=== PATIENT | male | born 1950 | race Caucasian/White ===

== ENCOUNTER 2020-02-06 16:09 | Inpatient (IN) ==
[2020-02-06] MEDS ORDERED: Furosemide 40 mg/4 ml IV VIAL IV SLOW PU ONE (16:41)
[2020-02-06 17:04] LABS: Hematocrit 44 % (42-52); Hemoglobin 14.8 g/dL (14.0-18.0); Mean Corpuscular HGB Conc 34 g/dL (31-36); Mean Corpuscular Hemoglobin 32 pg (27-31); Mean Corpuscular Volume 95 fL (80-94); Mean Platelet Volume 10.7 fL (7.4-10.4); Platelet Count 289 10^3/uL (150-450); Red Blood Count 4.62 10^6 /uL (4.18-5.48); Red Cell Distribution Width 17 % (10-15)
[2020-02-06 17:26] LABS: Troponin I 0.07 ng/mL (<0.03)
[2020-02-06 17:32] LABS: ABS Basophils 0.1 10^3/ul (0-0.2); ABS Eosinophils 0.1 10^3/ul (0-0.6); Eosinophil % 1.1 %; Lymphocyte % 10.9 %; Nucleated Red Blood Cells % 0.1
[2020-02-06 17:41] LABS: ALT 31 U/L (7-52); AST 23 U/L (13-39); Albumin 3.8 g/dL (3.2-5.2); Albumin/Globulin Ratio 1.5 (1-3); Alkaline Phosphatase 75 U/L (34-104); Anion Gap 9 mmol/L (2-11); BUN/Creatinine Ratio 18.2 (8-20); Blood Urea Nitrogen 28 mg/dL (6-24); C Reactive Protein 22.11 mg/L (<8.01); CO2 Carbon Dioxide 20 mmol/L (22-32); Calcium 9.3 mg/dL (8.6-10.3); Chloride 110 mmol/L (101-111); EGFR African American 54.5 (>60); Globulin 2.6 g/dL (2-4); Glucose 114 mg/dL (70-100); Potassium 3.8 mmol/L (3.5-5.0); Sodium 139 mmol/L (135-145); Total Protein 6.4 g/dL (6.4-8.9)
[2020-02-06] MEDS ORDERED: Metoprolol Tartrate 5 mg VIAL 5 ml VIAL (1 mg/ml) IV PRN (19:46)
[2020-02-06] MEDS ORDERED: A lbuterol Hfa (PREPAK) 1 MDI - ED TAKE HOME DISPENSING ONLY INHH PRN (19:50)
[2020-02-06] MEDS ORDERED: Potassium Chlor 20 meq TAB.ER PO ONE (19:55)
[2020-02-06] MEDS ORDERED: Metoprolol Tartrate 5 mg VIAL 5 ml VIAL (1 mg/ml) IV ONE (20:15)
[2020-02-06 20:20] LABS: Troponin I 0.07 ng/mL (<0.03)
[2020-02-06 21:04] LABS: Digoxin 1.6 ng/ml (0.8-2.0)
[2020-02-06 21:06] LABS: Magnesium 1.9 mg/dL (1.9-2.7)
[2020-02-06] MEDS ORDERED: Magnesium Sulfate IV 1GM/100ML 1 GM/100 ML BAG IV ONE (21:20)
[2020-02-06] MEDS: IMIPRAMINE 25 MG PO SCH (21:36)
[2020-02-06 21:51] LABS: TSH (Thyroid Stimulating Horm) 2.95 mcIU/mL (0.34-5.60)
[2020-02-06] MEDS ORDERED: Albuterol HFA INHALER 8 gm MDI INH PRN (22:00)
[2020-02-06] MEDS ORDERED: Diltiazem IV push/loading dose 5 MG/ML 5 ML vial (25 mg) IV SLOW PU ONE (22:14)
[2020-02-06] MEDS: Mometasone/Formoter 200/5 MDI INH SCH (23:11)
[2020-02-07 06:42] LABS: BUN/Creatinine Ratio 17.6 (8-20); Calcium 8.5 mg/dL (8.6-10.3); EGFR African American 59.8 (>60); EGFR Non-African American 49.4 (>60); Magnesium 1.9 mg/dL (1.9-2.7); Potassium 3.6 mmol/L (3.5-5.0)
[2020-02-07] MEDS: Mometasone/Formoter 200/5 MDI INH SCH ×2 (08:19→20:25)
[2020-02-07] MEDS ORDERED: Metoprolol Tartrate 5 mg VIAL 5 ml VIAL (1 mg/ml) IV ONE (08:35)
[2020-02-07] MEDS ORDERED: Digoxin IV 0.5 MG/2 ML AMP (0.25 MG/ML) IV SLOW PU ONE (08:35)
[2020-02-07] MEDS ORDERED: Potassium Chlor 20 meq TAB.ER PO ONE (09:21)
[2020-02-07] MEDS: Aspirin EC 81 mg TAB.EC (enteric coated) PO SCH (09:38)
[2020-02-07] MEDS ORDERED: Midazolam 5 mg/5 ml VIAL 1 mg/ml 5 ml VIAL (5 mg) ONE (10:10)
[2020-02-07] MEDS ORDERED: fentaNYL 100 mcg/2 ml 50 MCG/ML VIAL ONE (10:10)
[2020-02-07] MEDS ORDERED: Naloxone 0.4 mg VIAL 0.4 mg/ml 1 ml VIAL ONE (10:11)
[2020-02-07] MEDS ORDERED: Flumazenil 0.5 mg/5 ml 0.1 MG/ML 5 ml VIAL ONE (10:11)
[2020-02-07] MEDS ORDERED: KCL 10 MEQ/50 ML IVPREMIX 10 MEQ/50 ML BAG IV ONE (12:01)
[2020-02-07] MEDS: Amiodarone 150 mg IVPREMIX 150 MG/100 ML BAG IV ONE ×2 (12:07→12:20)
[2020-02-07] MEDS ORDERED: Amiodarone 150 mg IVPREMIX 150 MG/100 ML BAG IV ONE (12:14)
[2020-02-07] MEDS ORDERED: Potassium Chloride LIQUID 20 MEQ/15 ML LIQUID PO ONE (13:02)
[2020-02-07] MEDS: Amiodarone 400 mg TAB PO SCH (18:16)
[2020-02-07] MEDS: IMIPRAMINE 25 MG PO SCH (20:58)
[2020-02-08] MEDS ORDERED: Albuterol 2.5mg/3 ml (0.083%) NEB.SOLN INH ONE ×2 (07:53→13:01)
[2020-02-08] MEDS: Mometasone/Formoter 200/5 MDI INH SCH ×2 (08:06→19:51)
[2020-02-08 08:09] LABS: ABS Basophils 0.1 10^3/ul (0-0.2); ABS Eosinophils 0.1 10^3/ul (0-0.6); ABS Lymphocytes 0.8 10^3/ul (1.0-4.8); ABS Monocytes 0.9 10^3/ul (0-0.8); Eosinophil % 1.3 %; Hematocrit 40 % (42-52); Hemoglobin 13.5 g/dL (14.0-18.0); Lymphocyte % 10.1 %; Mean Corpuscular HGB Conc 34 g/dL (31-36); Mean Corpuscular Hemoglobin 32 pg (27-31); Mean Corpuscular Volume 95 fL (80-94); Mean Platelet Volume 9.8 fL (7.4-10.4); Nucleated Red Blood Cells % 0.1; Platelet Count 288 10^3/uL (150-450); Red Blood Count 4.25 10^6 /uL (4.18-5.48); Red Cell Distribution Width 17 % (10-15); White Blood Count 8.3 10^3/uL (3.5-10.8)
[2020-02-08] MEDS: Aspirin EC 81 mg TAB.EC (enteric coated) PO SCH (08:21)
[2020-02-08] MEDS: Amiodarone 400 mg TAB PO SCH (08:21)
[2020-02-08 08:30] LABS: Anion Gap 7 mmol/L (2-11); Blood Urea Nitrogen 25 mg/dL (6-24); CO2 Carbon Dioxide 24 mmol/L (22-32); Calcium 8.4 mg/dL (8.6-10.3); Chloride 105 mmol/L (101-111); EGFR African American 57.5 (>60); EGFR Non-African American 47.5 (>60); Glucose 95 mg/dL (70-100); Potassium 3.7 mmol/L (3.5-5.0); Sodium 136 mmol/L (135-145)
[2020-02-08] MEDS ORDERED: Potassium Chloride LIQUID 20 MEQ/15 ML LIQUID PO ONE (08:56)
[2020-02-08 09:36] LABS: Troponin I 0.23 ng/mL (<0.03)
[2020-02-08] MEDS: Enoxaparin 80 MG/0.8 ML SYR(*) SUBCUT SCH ×2 (10:13→20:51)
[2020-02-08] MEDS ORDERED: Furosemide 20 mg/2 ml IV VIAL IV ONE (10:17)
[2020-02-08 10:35] LABS: Magnesium 1.7 mg/dL (1.9-2.7)
[2020-02-08 10:43] LABS: Digoxin 1.6 ng/ml (0.8-2.0)
[2020-02-08] MEDS: IMIPRAMINE 25 MG PO SCH (20:49)
[2020-02-08 22:18] LABS: Troponin I 0.42 ng/mL (<0.03)
[2020-02-09 06:18] LABS: Troponin I 0.33 ng/mL (<0.03)
[2020-02-09] MEDS: Mometasone/Formoter 200/5 MDI INH SCH ×2 (07:21→19:20)
[2020-02-09] MEDS: Aspirin EC 81 mg TAB.EC (enteric coated) PO SCH (09:08)
[2020-02-09] MEDS: Amiodarone 400 mg TAB PO SCH (09:09)
[2020-02-09] MEDS: Enoxaparin 80 MG/0.8 ML SYR(*) SUBCUT SCH ×2 (09:12→22:29)
[2020-02-09] MEDS ORDERED: Potassium Chloride LIQUID 20 MEQ/15 ML LIQUID PO ONE ×2 (12:18→18:19)
[2020-02-09] MEDS ORDERED: Magnesium Sulfate 2 gm BAG 2 GM/50 ML BAG IVPB ONE (12:19)
[2020-02-09] MEDS: IMIPRAMINE 25 MG PO SCH (22:27)
[2020-02-10] MEDS: Mometasone/Formoter 200/5 MDI INH SCH ×2 (07:39→19:26)
[2020-02-10] MEDS: Enoxaparin 80 MG/0.8 ML SYR(*) SUBCUT SCH ×2 (08:01→21:29)
[2020-02-10] MEDS: Aspirin EC 81 mg TAB.EC (enteric coated) PO SCH (08:01)
[2020-02-10 08:37] LABS: INR 1.32 (0.82-1.09)
[2020-02-10 08:50] LABS: Anion Gap 7 mmol/L (2-11); BUN/Creatinine Ratio 16.7 (8-20); Blood Urea Nitrogen 22 mg/dL (6-24); CO2 Carbon Dioxide 25 mmol/L (22-32); Calcium 8.9 mg/dL (8.6-10.3); Chloride 101 mmol/L (101-111); EGFR African American 65.1 (>60); EGFR Non-African American 53.8 (>60); Glucose 117 mg/dL (70-100); Magnesium 1.8 mg/dL (1.9-2.7); Sodium 133 mmol/L (135-145)
[2020-02-10] MEDS ORDERED: ALENDRONATE 70 MG PO SCH (09:00)
[2020-02-10] MEDS ORDERED: Magnesium Sulfate 2 gm BAG 2 GM/50 ML BAG IVPB ONE (09:33)
[2020-02-10] MEDS ORDERED: Diltiazem IV push/loading dose 5 MG/ML 5 ML vial (25 mg) IV SLOW PU ONE (11:56)
[2020-02-10] MEDS ORDERED: Digoxin IV 0.5 MG/2 ML AMP (0.25 MG/ML) IV SLOW PU ONE (11:56)
[2020-02-10] MEDS: Potassium Chloride LIQUID 20 MEQ/15 ML LIQUID PO SCH ×2 (12:59→21:27)
[2020-02-10] MEDS: Diltiazem IV BAG D5W Premix 125 MG/125 ML BAG IV SCH (12:59)
[2020-02-10] MEDS: IMIPRAMINE 25 MG PO SCH (21:28)
[2020-02-11 07:17] LABS: ABS Basophils 0.1 10^3/ul (0-0.2); ABS Eosinophils 0.2 10^3/ul (0-0.6); ABS Lymphocytes 1.1 10^3/ul (1.0-4.8); Eosinophil % 1.8 %; Hematocrit 41 % (42-52); Hemoglobin 13.9 g/dL (14.0-18.0); Lymphocyte % 12.2 %; Mean Corpuscular HGB Conc 34 g/dL (31-36); Mean Corpuscular Hemoglobin 32 pg (27-31); Mean Corpuscular Volume 94 fL (80-94); Mean Platelet Volume 10.2 fL (7.4-10.4); Nucleated Red Blood Cells % 0.2; Platelet Count 314 10^3/uL (150-450); Red Blood Count 4.31 10^6 /uL (4.18-5.48); Red Cell Distribution Width 17 % (10-15); White Blood Count 9.1 10^3/uL (3.5-10.8)
[2020-02-11 07:32] LABS: BUN/Creatinine Ratio 15.8 (8-20); Calcium 8.5 mg/dL (8.6-10.3); EGFR African American 64.5 (>60); EGFR Non-African American 53.3 (>60); Potassium 4.3 mmol/L (3.5-5.0)
[2020-02-11] MEDS: Mometasone/Formoter 200/5 MDI INH SCH ×2 (07:48→20:17)
[2020-02-11] MEDS ORDERED: Heparin 2 UNITS/ML 1000 mls 2,000 ML IV ONE (09:22)
[2020-02-11] MEDS ORDERED: Lidocaine 1% VIAL 10 MG/ML VIAL ONE (09:22)
[2020-02-11] MEDS ORDERED: Iodixanol 320 (CONTRAST) 100 ML SDV ONE (09:23)
[2020-02-11] MEDS ORDERED: Heparin 2 UNITS/ML 1000 mls 1,000 ML IV ONE (09:23)
[2020-02-11] MEDS: Aspirin EC 81 mg TAB.EC (enteric coated) PO SCH (09:31)
[2020-02-11] MEDS: Diltiazem IV BAG D5W Premix 125 MG/125 ML BAG IV SCH (09:41)
[2020-02-11] MEDS ORDERED: NS 0.9% 1000 ml BAG 1,000 ML IV SCH (09:45)
[2020-02-11] MEDS ORDERED: fentaNYL 100 mcg/2 ml 50 MCG/ML VIAL ONE ×2 (09:57→11:15)
[2020-02-11] MEDS ORDERED: Midazolam 5 mg/5 ml VIAL 1 mg/ml 5 ml VIAL (5 mg) ONE (09:57)
[2020-02-11] MEDS ORDERED: FLUID IV SCH (10:00)
[2020-02-11] MEDS ORDERED: NS 0.9% IV SCH (10:00)
[2020-02-11 10:58] LABS: POC SO2 63 %
[2020-02-11 10:58] LABS: POC SO2 63 %
[2020-02-11 10:58] LABS: POC SO2 95 %
[2020-02-11] MEDS ORDERED: NS 0.9% IV ONE (11:22)
[2020-02-11] MEDS: IMIPRAMINE 25 MG PO SCH (20:08)
[2020-02-11] MEDS ORDERED: Enoxaparin 80 MG/0.8 ML SYR(*) SUBCUT ONE (21:00)
[2020-02-12 07:15] LABS: ABS Basophils 0.1 10^3/ul (0-0.2); ABS Eosinophils 0.1 10^3/ul (0-0.6); ABS Lymphocytes 1.1 10^3/ul (1.0-4.8); ABS Monocytes 1.3 10^3/ul (0-0.8); Eosinophil % 1.2 %; Hematocrit 40 % (42-52); Hemoglobin 13.7 g/dL (14.0-18.0); Lymphocyte % 10.7 %; Mean Corpuscular HGB Conc 34 g/dL (31-36); Mean Corpuscular Hemoglobin 32 pg (27-31); Mean Corpuscular Volume 94 fL (80-94); Platelet Count 315 10^3/uL (150-450); Red Blood Count 4.24 10^6 /uL (4.18-5.48); Red Cell Distribution Width 17 % (10-15); White Blood Count 9.9 10^3/uL (3.5-10.8)
[2020-02-12 07:26] LABS: BUN/Creatinine Ratio 17.3 (8-20); Calcium 8.8 mg/dL (8.6-10.3); EGFR African American 64.5 (>60); EGFR Non-African American 53.3 (>60); Magnesium 1.8 mg/dL (1.9-2.7); Potassium 4.2 mmol/L (3.5-5.0)
[2020-02-12] MEDS: Mometasone/Formoter 200/5 MDI INH SCH ×2 (07:36→20:19)
[2020-02-12] MEDS: Aspirin EC 81 mg TAB.EC (enteric coated) PO SCH (07:46)
[2020-02-12] MEDS ORDERED: Magnesium Sulfate 2 gm BAG 2 GM/50 ML BAG IVPB ONE (09:04)
[2020-02-12] MEDS: Diltiazem IV BAG D5W Premix 125 MG/125 ML BAG IV SCH (11:21)
[2020-02-12] MEDS ORDERED: Midazolam 5 mg/5 ml VIAL 1 mg/ml 5 ml VIAL (5 mg) ONE (14:01)
[2020-02-12] MEDS ORDERED: Flumazenil 0.5 mg/5 ml 0.1 MG/ML 5 ml VIAL ONE (14:02)
[2020-02-12] MEDS ORDERED: fentaNYL 100 mcg/2 ml 50 MCG/ML VIAL ONE (14:02)
[2020-02-12] MEDS ORDERED: Naloxone 0.4 mg VIAL 0.4 mg/ml 1 ml VIAL ONE (14:02)
[2020-02-12] MEDS: IMIPRAMINE 25 MG PO SCH (20:23)
[2020-02-13 06:36] LABS: BUN/Creatinine Ratio 14.4 (8-20); Calcium 8.6 mg/dL (8.6-10.3); EGFR African American 74.1 (>60); EGFR Non-African American 61.2 (>60); Magnesium 1.9 mg/dL (1.9-2.7); Potassium 4.3 mmol/L (3.5-5.0)
[2020-02-13] MEDS: Mometasone/Formoter 200/5 MDI INH SCH (07:38)
[2020-02-13] MEDS: Aspirin EC 81 mg TAB.EC (enteric coated) PO SCH (09:21)
[2020-02-13 18:34] VITALS: BP 145/78
== END 2020-02-13 18:22 | disposition home or self-care (01) | DRG 286 ==
LOC: ED 16:09 → MEDTELE 20:50
PROVIDERS: ADMIT Internal Medicine; ATTEND Internal Medicine

== ENCOUNTER 2020-05-27 16:14 | Inpatient (IN) ==
[2020-05-27 17:33] LABS: ABS Lymphocytes 0.6 10^3/ul (1.0-4.8); ABS Monocytes 0.7 10^3/ul (0-0.8); ABS Neutrophils 11.6 10^3/ul (1.5-7.7); Eosinophil % 0.2 %; Hematocrit 43 % (42-52); Hemoglobin 14.6 g/dL (14.0-18.0); Lymphocyte % 4.6 %; Mean Corpuscular HGB Conc 34 g/dL (31-36); Mean Corpuscular Hemoglobin 32 pg (27-31); Mean Corpuscular Volume 94 fL (80-94); Mean Platelet Volume 8.9 fL (7.4-10.4); Platelet Count 263 10^3/uL (150-450); Red Blood Count 4.54 10^6 /uL (4.18-5.48); Red Cell Distribution Width 20 % (10-15); White Blood Count 12.9 10^3/uL (3.5-10.8)
[2020-05-27 17:49] LABS: ALT 65 U/L (7-52); AST 56 U/L (13-39); Albumin/Globulin Ratio 1.2 (1-3); Alkaline Phosphatase 120 U/L (34-104); Anion Gap 11 mmol/L (2-11); BUN/Creatinine Ratio 14.9 (8-20); Blood Urea Nitrogen 26 mg/dL (6-24); C Reactive Protein 123.03 mg/L (<8.01); CO2 Carbon Dioxide 22 mmol/L (22-32); Calcium 8.9 mg/dL (8.6-10.3); Chloride 100 mmol/L (101-111); EGFR Non-African American 38.8 (>60); Globulin 3.3 g/dL (2-4); Glucose 74 mg/dL (70-100); Magnesium 2.2 mg/dL (1.9-2.7); Potassium 4.9 mmol/L (3.5-5.0); Sodium 133 mmol/L (135-145); Total Protein 7.3 g/dL (6.4-8.9)
[2020-05-27 17:52] LABS: Troponin I 0.05 ng/mL (<0.03)
[2020-05-27 18:31] LABS: Urine Appearance Clear; Urine Bilirubin Negative (Negative); Urine Blood Negative (Negative); Urine Color Straw; Urine Glucose Negative (Negative); Urine Ketones Negative (Negative); Urine Nitrite Negative (Negative); Urine Protein Negative (Negative); Urine Specific Gravity 1.005 (1.010-1.030); Urine Urobilinogen Negative (Negative)
[2020-05-27 21:35] LABS: Troponin I 0.04 ng/mL (<0.03)
[2020-05-27] MEDS ORDERED: Heparin 5000 UNITS/ML 1 mL VIAL SUBCUT SCH (22:00)
[2020-05-27] MEDS ORDERED: Heparin DRIP 25,000 UNITS BAG 25,000 UNITS/500 ML BAG IV SCH (22:15)
[2020-05-27] MEDS: Heparin 5000 UNITS/ML 1 mL VIAL IV SCH ×2 (22:49→22:53)
[2020-05-27] MEDS: Bumetanide IV 0.25 MG/ML 4 ml VIAL (1 mg) SLOW PUSH SCH (22:52)
[2020-05-27 22:53] LABS: ABS Lymphocytes 0.7 10^3/ul (1.0-4.8); ABS Monocytes 0.9 10^3/ul (0-0.8); ABS Neutrophils 10.8 10^3/ul (1.5-7.7); Eosinophil % 0.3 %; Hematocrit 38 % (42-52); Hemoglobin 12.7 g/dL (14.0-18.0); Lymphocyte % 5.9 %; Mean Corpuscular HGB Conc 34 g/dL (31-36); Mean Corpuscular Hemoglobin 32 pg (27-31); Mean Corpuscular Volume 94 fL (80-94); Mean Platelet Volume 8.7 fL (7.4-10.4); Platelet Count 220 10^3/uL (150-450); Red Blood Count 4.01 10^6 /uL (4.18-5.48); Red Cell Distribution Width 19 % (10-15); White Blood Count 12.5 10^3/uL (3.5-10.8)
[2020-05-28 00:47] LABS: Troponin I 0.04 ng/mL (<0.03)
[2020-05-28 06:15] LABS: ABS Basophils 0.1 10^3/ul (0-0.2); ABS Lymphocytes 0.6 10^3/ul (1.0-4.8); ABS Monocytes 0.8 10^3/ul (0-0.8); ABS Neutrophils 10.6 10^3/ul (1.5-7.7); Eosinophil % 0.2 %; Hematocrit 41 % (42-52); Hemoglobin 14.2 g/dL (14.0-18.0); Lymphocyte % 5.2 %; Mean Corpuscular HGB Conc 34 g/dL (31-36); Mean Corpuscular Hemoglobin 32 pg (27-31); Mean Corpuscular Volume 94 fL (80-94); Mean Platelet Volume 8.6 fL (7.4-10.4); Platelet Count 233 10^3/uL (150-450); Red Blood Count 4.41 10^6 /uL (4.18-5.48); Red Cell Distribution Width 19 % (10-15); White Blood Count 12.2 10^3/uL (3.5-10.8)
[2020-05-28 06:37] LABS: Albumin 3.3 g/dL (3.2-5.2); Albumin/Globulin Ratio 1.1 (1-3); Calcium 8.3 mg/dL (8.6-10.3); EGFR African American 51.4 (>60); EGFR Non-African American 42.5 (>60); Globulin 2.9 g/dL (2-4); Potassium 4.2 mmol/L (3.5-5.0); Total Bilirubin 1.8 mg/dL (0.2-1.0); Total Protein 6.2 g/dL (6.4-8.9)
[2020-05-28] MEDS ORDERED: Potassium Chlor 20 meq TAB.ER PO SCH (09:00)
[2020-05-28] MEDS: Mometasone/Formoter 200/5 MDI INH SCH ×2 (09:06→20:30)
[2020-05-28] MEDS: Amiodarone 400 mg TAB PO SCH (10:41)
[2020-05-28] MEDS: Heparin 5000 UNITS/ML 1 mL VIAL SUBCUT SCH ×3 (10:41→20:56)
[2020-05-28 14:02] LABS: Hepatitis B Surface Antigen Nonreactive (Nonreactive)
[2020-05-28 14:08] LABS: Hepatitis A Ab IgM Negative (Negative); Hepatitis B Core IgM Nonreactive (Nonreactive)
[2020-05-28 14:59] LABS: Hepatitis C Antibody Reactive (Negative)
[2020-05-28] MEDS: cefTRIAXone 1 gm/50 mL NS BAG 1 GM/50 ML BAG IVPB SCH (17:27)
[2020-05-28] MEDS: metroNIDAZOLE IV 500 MG/100ML 500 MG/100 ML BAG IVPB SCH (18:26)
[2020-05-28] MEDS: IMIPRAMINE 25 MG PO SCH (20:56)
[2020-05-28] MEDS: Bumetanide IV 0.25 MG/ML 4 ml VIAL (1 mg) SLOW PUSH SCH (20:56)
[2020-05-29] MEDS: metroNIDAZOLE IV 500 MG/100ML 500 MG/100 ML BAG IVPB SCH ×2 (01:33→10:32)
[2020-05-29] MEDS: Heparin 5000 UNITS/ML 1 mL VIAL SUBCUT SCH ×3 (06:12→22:18)
[2020-05-29 06:35] LABS: ABS Basophils 0.1 10^3/ul (0-0.2); ABS Lymphocytes 0.7 10^3/ul (1.0-4.8); ABS Monocytes 1.1 10^3/ul (0-0.8); Eosinophil % 0.3 %; Hematocrit 39 % (42-52); Hemoglobin 13.3 g/dL (14.0-18.0); Lymphocyte % 5.2 %; Mean Corpuscular HGB Conc 34 g/dL (31-36); Mean Corpuscular Hemoglobin 31 pg (27-31); Mean Corpuscular Volume 92 fL (80-94); Mean Platelet Volume 8.7 fL (7.4-10.4); Platelet Count 241 10^3/uL (150-450); Red Blood Count 4.24 10^6 /uL (4.18-5.48); Red Cell Distribution Width 19 % (10-15); White Blood Count 12.9 10^3/uL (3.5-10.8)
[2020-05-29 07:07] LABS: BUN/Creatinine Ratio 16.7 (8-20); EGFR African American 49.3 (>60); EGFR Non-African American 40.7 (>60); Magnesium 1.8 mg/dL (1.9-2.7)
[2020-05-29] MEDS: Mometasone/Formoter 200/5 MDI INH SCH ×2 (07:57→19:31)
[2020-05-29] MEDS ORDERED: Magnesium Sulfate IV 1GM/100ML 1 GM/100 ML BAG IV ONE (08:23)
[2020-05-29] MEDS ORDERED: Potassium Chlor 20 meq TAB.ER PO ONE (08:24)
[2020-05-29] MEDS: Amiodarone 400 mg TAB PO SCH (08:44)
[2020-05-29] MEDS: KCL 20 MEQ/100 ML IVPREMIX 20 MEQ/100 ML BAG IV SCH ×2 (09:01→11:25)
[2020-05-29 09:59] LABS: C Reactive Protein 108.13 mg/L (<8.01)
[2020-05-29] MEDS ORDERED: NS 0.9% 500 ml BAG 500 ML IV SCH (13:00)
[2020-05-29 15:12] LABS: Body Fluid Source Pleural Fluid
[2020-05-29 15:55] LABS: Body Fluid Mono 47 %; Body Fluid Other Cells 6
[2020-05-29] MEDS: cefTRIAXone 1 gm/50 mL NS BAG 1 GM/50 ML BAG IVPB SCH (17:30)
[2020-05-29] MEDS: IMIPRAMINE 25 MG PO SCH (22:19)
[2020-05-30] MEDS: Heparin 5000 UNITS/ML 1 mL VIAL SUBCUT SCH (05:20)
[2020-05-30 06:38] LABS: ABS Basophils 0.1 10^3/ul (0-0.2); ABS Lymphocytes 0.7 10^3/ul (1.0-4.8); ABS Monocytes 1.1 10^3/ul (0-0.8); ABS Neutrophils 11.4 10^3/ul (1.5-7.7); Eosinophil % 0.3 %; Hematocrit 39 % (42-52); Hemoglobin 13.1 g/dL (14.0-18.0); Lymphocyte % 5.3 %; Mean Corpuscular HGB Conc 34 g/dL (31-36); Mean Corpuscular Hemoglobin 32 pg (27-31); Mean Corpuscular Volume 93 fL (80-94); Nucleated Red Blood Cells % 0.1; Platelet Count 241 10^3/uL (150-450); Red Blood Count 4.17 10^6 /uL (4.18-5.48); Red Cell Distribution Width 19 % (10-15); White Blood Count 13.3 10^3/uL (3.5-10.8)
[2020-05-30 06:47] LABS: BUN/Creatinine Ratio 17.2 (8-20); Calcium 7.9 mg/dL (8.6-10.3); EGFR African American 55.7 (>60); Magnesium 1.7 mg/dL (1.9-2.7); Potassium 2.9 mmol/L (3.5-5.0)
[2020-05-30] MEDS: Mometasone/Formoter 200/5 MDI INH SCH ×2 (08:09→19:21)
[2020-05-30] MEDS ORDERED: Potassium Chlor 20 meq TAB.ER PO ONE (08:49)
[2020-05-30] MEDS ORDERED: Magnesium Sulfate 2 gm BAG 2 GM/50 ML BAG IVPB ONE (08:50)
[2020-05-30] MEDS: KCL 20 MEQ/100 ML IVPREMIX 20 MEQ/100 ML BAG IV SCH ×2 (09:16→11:54)
[2020-05-30] MEDS: Amiodarone 400 mg TAB PO SCH (09:18)
[2020-05-30] MEDS ORDERED: Iodixanol (CONTRAST) 320 MG/ML 100 ML SDV IV ONE (11:54)
[2020-05-30] MEDS: Potassium Chlor 20 meq TAB.ER PO SCH (14:19)
[2020-05-30 14:48] LABS: Potassium 3.5 mmol/L (3.5-5.0)
[2020-05-30 14:49] LABS: BUN/Creatinine Ratio 19.1 (8-20); Calcium 8.1 mg/dL (8.6-10.3); EGFR African American 62.9 (>60); Magnesium 2.1 mg/dL (1.9-2.7)
[2020-05-30] MEDS: cefTRIAXone 1 gm/50 mL NS BAG 1 GM/50 ML BAG IVPB SCH (17:27)
[2020-05-30] MEDS: IMIPRAMINE 25 MG PO SCH (21:06)
[2020-05-31 06:03] LABS: ABS Basophils 0.1 10^3/ul (0-0.2); ABS Eosinophils 0.1 10^3/ul (0-0.6); ABS Lymphocytes 0.6 10^3/ul (1.0-4.8); ABS Monocytes 1.4 10^3/ul (0-0.8); ABS Neutrophils 12.1 10^3/ul (1.5-7.7); Eosinophil % 0.5 %; Hematocrit 38 % (42-52); Hemoglobin 12.8 g/dL (14.0-18.0); Lymphocyte % 4.2 %; Mean Corpuscular HGB Conc 34 g/dL (31-36); Mean Corpuscular Hemoglobin 32 pg (27-31); Mean Corpuscular Volume 94 fL (80-94); Mean Platelet Volume 8.7 fL (7.4-10.4); Platelet Count 241 10^3/uL (150-450); Red Blood Count 4.01 10^6 /uL (4.18-5.48); Red Cell Distribution Width 19 % (10-15); White Blood Count 14.2 10^3/uL (3.5-10.8)
[2020-05-31] MEDS: Mometasone/Formoter 200/5 MDI INH SCH ×2 (07:45→19:43)
[2020-05-31] MEDS: Amiodarone 400 mg TAB PO SCH (09:01)
[2020-05-31] MEDS: Potassium Chlor 20 meq TAB.ER PO SCH (09:01)
[2020-05-31 09:38] LABS: BUN/Creatinine Ratio 19.8 (8-20); C Reactive Protein 129.5 mg/L (<8.01); EGFR African American 65.6 (>60); EGFR Non-African American 54.3 (>60); Magnesium 1.9 mg/dL (1.9-2.7)
[2020-05-31] MEDS ORDERED: ZOSYN 3.375 GM x ONE DOSE over 30 miuntes IV (11:30)
[2020-05-31] MEDS: KCL 20 MEQ/100 ML IVPREMIX 20 MEQ/100 ML BAG IV SCH ×3 (11:49→18:07)
[2020-05-31] MEDS ORDERED: Zosyn per Pharmacy NOTE FOLLOW UP SCH (12:00)
[2020-05-31] MEDS: ZOSYN 3.375 GM Q8H per EXTENDED INFUSION IV SCH ×2 (15:23→23:52)
[2020-05-31 15:52] LABS: Lactate Dehydrogenase, BF 105 U/L
[2020-05-31 16:10] LABS: Fluid Type, Protein, Total PLEURAL
[2020-05-31] MEDS: IMIPRAMINE 25 MG PO SCH (20:46)
[2020-06-01 06:33] LABS: ABS Basophils 0.1 10^3/ul (0-0.2); ABS Eosinophils 0.1 10^3/ul (0-0.6); ABS Lymphocytes 0.7 10^3/ul (1.0-4.8); ABS Neutrophils 10.3 10^3/ul (1.5-7.7); Eosinophil % 0.7 %; Hematocrit 38 % (42-52); Hemoglobin 12.8 g/dL (14.0-18.0); Lymphocyte % 5.4 %; Mean Corpuscular HGB Conc 34 g/dL (31-36); Mean Corpuscular Hemoglobin 32 pg (27-31); Mean Corpuscular Volume 94 fL (80-94); Mean Platelet Volume 8.7 fL (7.4-10.4); Platelet Count 249 10^3/uL (150-450); Red Blood Count 4.02 10^6 /uL (4.18-5.48); Red Cell Distribution Width 19 % (10-15); White Blood Count 12.1 10^3/uL (3.5-10.8)
[2020-06-01 06:50] LABS: Calcium 8.1 mg/dL (8.6-10.3); EGFR African American 69.9 (>60); EGFR Non-African American 57.8 (>60); Potassium 3.7 mmol/L (3.5-5.0)
[2020-06-01] MEDS: Potassium Chlor 20 meq TAB.ER PO SCH (08:12)
[2020-06-01] MEDS: Amiodarone 400 mg TAB PO SCH (08:12)
[2020-06-01] MEDS: ZOSYN 3.375 GM Q8H per EXTENDED INFUSION IV SCH ×3 (08:12→23:28)
[2020-06-01] MEDS: Mometasone/Formoter 200/5 MDI INH SCH ×2 (08:20→20:32)
[2020-06-01] MEDS: IMIPRAMINE 25 MG PO SCH (20:07)
[2020-06-02] MEDS: ZOSYN 3.375 GM Q8H per EXTENDED INFUSION IV SCH ×3 (07:53→23:19)
[2020-06-02] MEDS: Potassium Chlor 20 meq TAB.ER PO SCH (07:54)
[2020-06-02] MEDS: Amiodarone 400 mg TAB PO SCH (07:54)
[2020-06-02] MEDS: Mometasone/Formoter 200/5 MDI INH SCH ×2 (07:58→19:02)
[2020-06-02 11:39] LABS: Fluid Type: PLEURAL; Triglycerides (BF) 19 mg/dL
[2020-06-02] MEDS: IMIPRAMINE 25 MG PO SCH (20:08)
[2020-06-03 06:25] LABS: ABS Basophils 0.1 10^3/ul (0-0.2); ABS Eosinophils 0.1 10^3/ul (0-0.6); ABS Lymphocytes 0.8 10^3/ul (1.0-4.8); ABS Monocytes 0.8 10^3/ul (0-0.8); ABS Neutrophils 7.9 10^3/ul (1.5-7.7); Eosinophil % 0.7 %; Hematocrit 40 % (42-52); Hemoglobin 13.3 g/dL (14.0-18.0); Lymphocyte % 7.9 %; Mean Corpuscular HGB Conc 33 g/dL (31-36); Mean Corpuscular Hemoglobin 31 pg (27-31); Mean Corpuscular Volume 94 fL (80-94); Mean Platelet Volume 8.7 fL (7.4-10.4); Platelet Count 295 10^3/uL (150-450); Red Blood Count 4.26 10^6 /uL (4.18-5.48); Red Cell Distribution Width 19 % (10-15); White Blood Count 9.6 10^3/uL (3.5-10.8)
[2020-06-03 06:39] LABS: BUN/Creatinine Ratio 22.8 (8-20); C Reactive Protein 99.18 mg/L (<8.01); Calcium 8.6 mg/dL (8.6-10.3); EGFR African American 62.9 (>60); Potassium 3.8 mmol/L (3.5-5.0)
[2020-06-03] MEDS: ZOSYN 3.375 GM Q8H per EXTENDED INFUSION IV SCH ×2 (08:10→15:45)
[2020-06-03] MEDS: Amiodarone 400 mg TAB PO SCH (08:11)
[2020-06-03] MEDS: Potassium Chlor 20 meq TAB.ER PO SCH (08:11)
[2020-06-03] MEDS ORDERED: Senna TAB 8.6 mg TAB PO PRN (08:35)
[2020-06-03] MEDS ORDERED: Polyethylene Glycol 3350 17 GM PACKET PO PRN (08:36)
[2020-06-03] MEDS: Mometasone/Formoter 200/5 MDI INH SCH ×2 (09:37→19:55)
[2020-06-03] MEDS: Albuterol HFA INHALER 8 gm MDI INH PRN ×2 (09:40→19:55)
[2020-06-03] MEDS: IMIPRAMINE 25 MG PO SCH (21:38)
[2020-06-04] MEDS: ZOSYN 3.375 GM Q8H per EXTENDED INFUSION IV SCH ×2 (00:38→08:03)
[2020-06-04] MEDS: Potassium Chlor 20 meq TAB.ER PO SCH (08:03)
[2020-06-04 09:13] LABS: BUN/Creatinine Ratio 20.5 (8-20); Calcium 8.8 mg/dL (8.6-10.3); EGFR African American 51.7 (>60); EGFR Non-African American 42.8 (>60); Potassium 4.2 mmol/L (3.5-5.0)
[2020-06-04] MEDS: Mometasone/Formoter 200/5 MDI INH SCH ×2 (09:28→20:13)
[2020-06-04] MEDS: Amoxicillin/Clavul 500/125 TAB (Augmentin 500 mg tab) PO SCH ×2 (10:41→20:20)
[2020-06-04] MEDS: IMIPRAMINE 25 MG PO SCH (20:20)
[2020-06-05 06:44] VITALS: BP 106/86
[2020-06-05] MEDS: Mometasone/Formoter 200/5 MDI INH SCH (07:48)
[2020-06-05] MEDS: Albuterol HFA INHALER 8 gm MDI INH PRN (07:52)
[2020-06-05] MEDS: Amoxicillin/Clavul 500/125 TAB (Augmentin 500 mg tab) PO SCH (08:26)
[2020-06-05] MEDS: Potassium Chlor 20 meq TAB.ER PO SCH (08:26)
[2020-06-05 10:26] LABS: BUN/Creatinine Ratio 25.9 (8-20); Calcium 8.8 mg/dL (8.6-10.3); EGFR African American 49.9 (>60); EGFR Non-African American 41.3 (>60); Potassium 3.7 mmol/L (3.5-5.0)
== END 2020-06-05 12:12 | DRG 291 ==
LOC: ED 16:14 → MEDTELE 20:44
PROVIDERS: ADMIT Student in an Organized Health Care Education/Training Program; ATTEND Pediatrics